=== PATIENT | male | born 1945 | race Caucasian/White ===

== ENCOUNTER → 2017-08-27 10:21 | Outpatient (CLI) | payer MEDICARE, SELFPAY ==
--- NOTE | 2017-08-27 10:47 | AS_ITS ---
Renal Arterial Duplex Indications: HTN. IMPRESSIONS 1. Less than 60% stenosis involving the left renal artery 2. Unable to visualize the right renal artery. Difficult exam. Complete renal arterial duplex. Duplex scan and Doppler flow study including spectral analysis, color and booker scale imaging. Height: Height: 180.3cm. Height: 71in. Weight: Weight: 113.4kg. Weight: 249.5lb. Body mass index: BMI: 34.9kg/m^2. Body surface area: BSA: 2.42m^2. Patient status: Outpatient. Findings: Cyst in the left kidney. Tables: Arterial flow: + +-------+--------+---------+ Location V sys V ed Resistive + +-------+--------+---------+ Left renal - proximal 63cm/s 0cm/s 0.70 + +-------+--------+---------+ Left renal - mid 141cm/s 55.6cm/s 0.60 + +-------+--------+---------+ Left renal - distal 146cm/s 41.1cm/s 1.00 + +-------+--------+---------+ Renal anatomy: + +-----+------+ Left Right + +-----+------+ Long axis 9.1cm 10.9cm + +-----+------+ Short axis 5.1cm 6.4cm + +-----+------+ Cortical thickness 1.4cm 1.7cm + +-----+------+ Velocity ratios: + +-----+ V sys + +-----+ Left renal/aortic 2.5 + +-----+ (Report amended ) Electronically signed by: Mustapha Lugo [id number]
== END ==
PROVIDERS: Family Provider Family Medicine; PCP Family Medicine; Visit Provider Internal Medicine
DX: I70.1 Atherosclerosis of renal artery (principal)
CPT/HCPCS: 93976

== ENCOUNTER → 2017-12-15 12:33 | Outpatient (CLI) | payer MEDICARE, SELFPAY ==
--- NOTE | 2017-12-15 12:40 | CT_ITS ---
EXAM: CT LUNG LOW DOSE WO CONTRAST CPT [id number] COMPARISON: 12/09/2016 screening low-dose CT chest HISTORY: 30 years 1 pack per day June 16 pack-year. no clinical symptoms or signs of lung TECHNIQUE: The exam was performed on a GE Light Speed [address] scanner using 3.0 mGy CTDI. A low dose helical CT CHEST was performed on a multi-detector scanner. All CT scans at this facility use one or more dose reduction techniques, viz.: automated exposure control, ma/kV adjustment per patient size (including targeted exams where dose is matched to indication, i.e. head) or iterative reconstruction technique. The LDCT was performed in a facility that meets the criteria for the screening program. Data regarding this exam was submitted to ACR which is an approved registry. The order for this exam indicates that it came as a result of a lung cancer screening counseling shard decision-making visit that included all the elements required of such a visit including cancer interpreting this exam meets the CMS criteria for the LDCT lung cancer screening program. The exam is reported using the Lung-RADS classification scale and reported to the ACR registry. NOTE: This study was performed for the specific purposes of lung cancer screening and is not an alternative to diagnostic chest CT. RADIATION DOSE: CTDI vol(CT dose Index-volume) = 2.9mGy DLP (Dose Length Product) = 110.46 mGy-cm ======== FINDINGS: No suspicious nor significant appearing lung nodules or masses. Indeterminate or Suspicious Lung Nodules(Category3-4B): None Indeterminate/Non-actionable Nodules(Category2): None the the wispy area noted last year no longer evident here at the left lung base. Benign nodules(Category1)None no suspicious is a benign nodule LUNG PARENCHYMA Emphysema: Mild centrilobular emphysematous changes. 3.5 cm Bleb formation left lung base along left heart border lingula that above diaphragm. No significant change.. Airways disease: Borderline/minor airway thickening. Mild hyperexpansion. . OTHER ANATOMIC REGIONS Lymph Nodes: No significant, pathologic enlarged lymph nodes evident. Scattered small nodes are present in the mediastinum and agus. Stable appearance to a fatty node right paratracheal region measuring 1 cm x 2.3 cm.. Stable small nodes subcarinal and precarinal region. Stable small nodes AP window. No hilar adenopathy. Calcification aortic root and calcification left main, LAD and circumflex artery as well as right coronary. . Diffuse calcifications throughout the proximal SMA instantly noted Pleura: Unremarkable . OTHER FINDINGS: No other pertinent findings evident =========IMPRESSION: 1. . No pulmonary nodule or mass identified. No areas of concern. .Lung RADS Category: 0. Follow-up screening chest CT one year recommended 2.... Mild emphysematous changes, with bleb formation left lung base. Borderline/minimal airway thickening 3. Atherosclerotic Vascular disease/Coronary artery disease/calcification again noted. RECOMMENDATIONS: 12 monthd LDCT follow-up
== END ==
PROVIDERS: PCP Family Medicine; Visit Provider Family Medicine
DX: Z12.2 Encounter for screening for malignant neoplasm of respiratory organs (principal); Z87.891 Personal history of nicotine dependence

== ENCOUNTER → 2018-06-24 08:59 | Outpatient (CLI) | payer MEDICARE, SELFPAY ==
[2018-06-24 10:38] LABS: Blood Urea Nitrogen 14 mg/dL (7-18); Estimated Glomerular Filt Rate 74 ml/min (>60); GFR (African American) 89 ML/MIN (>60)
== END ==
PROVIDERS: Visit Provider Family Medicine
DX: R10.9 Unspecified abdominal pain (principal)
CPT/HCPCS: 36415; 82565; 84520

== ENCOUNTER → 2018-06-26 09:38 | Outpatient (CLI) | payer MEDICARE, SELFPAY ==
--- NOTE | 2018-06-26 09:41 | CT_ITS ---
CT abdomen pelvis wo/w con CLINICAL INDICATION: Right flank pain ITS.REASON: FLANK PAIN ORDERING PHYSICIAN: Mahesh Curry MD PATIENT AGE: 72 years COMPARISON: None TECHNIQUE: Axial images obtained without and with contrast sagittal and coronal reformats. All CT scans at the facility use one or more dose reduction, viz: automated exposure control, ma/kV adjustment per patient size (including targeted exams where dose is matched to indication, i.e. head), or iterative reconstruction technique. PROCEDURE: Oral Contrast: Redicat IV Contrast: 75 mL Omnipaque 350. FINDINGS: Lower thorax: No acute finding in the lung bases. Coronary artery calcifications are present. Aortic valve calcifications are also noted. There are few small isodense lesions of the liver measuring up to 9 mm in the right hepatic lobe inferiorly. These may be due to hepatic cyst. Stability may be confirmed with follow-up. There is mild splenomegaly at 14 cm. The pancreas has an unremarkable appearance. There is mildly enlarged left adrenal gland not significant change. No renal or ureteral calculi. Vascular calcification is present in the kidneys. There are multiple small hypodensities of the kidneys consistent with bilateral renal cysts measuring up to 1 cm. No hydronephrosis. No suspicious renal mass. No ureteral calculi. There is mild ectasia of the infrarenal abdominal aorta. Unremarkable appendix. No intestinal obstruction or free air. There is mild amount of retained colonic feces. Prostate calcifications are noted. No pelvic mass abnormal fluid collection or focal inflammatory change. No evidence of diverticulitis. No acute bony anomalies. There are mild changes in the lumbar spine and SI joints. IMPRESSION: 1. No acute abdominal or pelvic findings. 2. No renal or ureteral calculi. 3. Small bilateral renal cysts and probable hepatic cyst 4. Other nonacute findings as described above
== END ==
PROVIDERS: PCP Family Medicine; Visit Provider Family Medicine
DX: R10.31 Right lower quadrant pain (principal)
CPT/HCPCS: 74178

== ENCOUNTER → 2018-12-18 12:46 | Outpatient (CLI) | payer MEDICARE, SELFPAY ==
--- NOTE | 2018-12-18 12:50 | CT_ITS ---
PROCEDURE: CT LUNG SCREENING CLINICAL INDICATION: H/O NICOTINE DEPENDENCE Thirty pack-year smoking history, asymptomatic for lung cancer COMPARISON: LUNGSCREEN CT lung screening from 12/15/2017 TECHNIQUE: The exam was performed on a GE [employer] Speed [address] scanner using 2.90 mGy CTDI. A low dose helical CT CHEST was performed on a multi-detector scanner. All CT scans at the facility use one or more dose reduction, viz: automated exposure control, ma/kV adjustment per patient size (including targeted exams where dose is matched to indication, i.e. head), or iterative reconstruction technique. The LDCT was performed in a facility that meets the criteria for the screening program. Data regarding this exam was submitted to ACR which is an approved registry. The order for this exam indicates that it came as a result of a lung cancer screening counseling shard decision-making visit that included all the elements required of such a visit including smoking cessation. The radiologist interpreting this exam meets the CMS criteria for the LDCT lung cancer screening program. The exam is reported using the Lung-RADS classification scale and reported to the ACR registry. NOTE: This study was performed for the specific purposes of lung cancer screening and is not an alternative to diagnostic chest CT. RADIATION DOSE: CTDI vol(CT dose Index-volume) = 2.90mG DLP (Dose Length Product) = 110.46 mGcm FINDINGS: COPD. Scattered small mediastinal nodes. Coronary artery calcifications. No suspicious nodules OTHER FINDINGS: Degenerative changes thoracic spine. There is a bleb in the left lung base IMPRESSION: Lung rads category 1-no significant change Recommend annual LD CT screening exam Dictated by: Mustapha Lugo MD 12/18/2018 18:35 Electronically signed by Mustapha Lugo MD in [place] 12/27/2018 07:30
== END ==
PROVIDERS: PCP Family Medicine; Visit Provider Family Medicine
DX: Z87.891 Personal history of nicotine dependence (principal); Z12.2 Encounter for screening for malignant neoplasm of respiratory organs

== ENCOUNTER → 2020-06-09 12:47 | Outpatient (CLI) | payer MEDICARE, SELFPAY ==
--- NOTE | 2020-06-09 12:51 | CT_ITS ---
PROCEDURE: CT LUNG SCREENING CLINICAL INDICATION: H/O NICOTINE DEPENDENCE Former smoker Quit smoking 7-8 years ago 30 pack year smoking history COMPARISON: CT CT LUNG SCREENING from 12/18/2018 TECHNIQUE: The exam was performed on a GE [employer] Speed [address] scanner using 2.90 mGy CTDI. A low dose helical CT CHEST was performed on a multi-detector scanner. All CT scans at the facility use one or more dose reduction, viz: automated exposure control, ma/kV adjustment per patient size (including targeted exams where dose is matched to indication, i.e. head), or iterative reconstruction technique. The LDCT was performed in a facility that meets the criteria for the screening program. Data regarding this exam was submitted to ACR which is an approved registry. The order for this exam indicates that it came as a result of a lung cancer screening counseling shard decision-making visit that included all the elements required of such a visit including smoking cessation. The radiologist interpreting this exam meets the CMS criteria for the LDCT lung cancer screening program. The exam is reported using the Lung-RADS classification scale and reported to the ACR registry. NOTE: This study was performed for the specific purposes of lung cancer screening and is not an alternative to diagnostic chest CT. RADIATION DOSE: CTDI vol(CT dose Index-volume) = 2.90mG DLP (Dose Length Product) = 104.99 mGcm FINDINGS: COPD changes. There is a faint ground-glass in the left lower lobe posteriorly at 6 mm not significantly changed. No suspicious nodules evident. OTHER FINDINGS: Coronary artery calcification. Generalized vascular calcification. There are few small mediastinal lymph nodes not significantly changed. IMPRESSION: Lung-RADS Category 2 Benign Appearance or Behavior Follow-up: Continue annual screening with LDCT in 12 months Dictated by: Mustapha Lugo MD 06/15/2020 13:52 Mustapha Lugo MD in [place] 06/15/2020 13:52
== END ==
PROVIDERS: PCP Family Medicine; Visit Provider Family Medicine
DX: Z87.891 Personal history of nicotine dependence (principal); Z12.2 Encounter for screening for malignant neoplasm of respiratory organs
CPT/HCPCS: 71271

== ENCOUNTER 2020-08-28 16:12 | Emergency (ER) | payer MEDICARE, SELFPAY ==
[2020-08-28 16:15] VITALS: BP 160/83; PULSE 78; RESP 20; TEMP 36.8; O2SAT 100; BMI 35.4
[2020-08-28 16:36] LABS: Apearance,Urine Clear (Clear); Bilirubin,Urine Negative (Negative); Blood, Urine Negative (Negative); Color,Urine Yellow (Yellow); Glucose,Urine (UA) Negative (Negative); Ketones,Urine Negative (Negative); PH,Urine 5.5 (5.0-8.5); Protein,Urine 1+ (Negative); UTC Leukocyte Esterase,Urine 1+ (Negative); UTC Nitrate,Urine Negative (Negative); Urobilinogen,Urine 0.2 EU/dl (0.2)
--- NOTE | 2020-08-28 16:54 | HMH.EDUTC ---
[facility] [place] Clinical Impression: UTI (urinary tract infection) Qualifiers: Urinary tract infection type: site unspecified Hematuria presence: without hematuria Qualified Code(s): N39.0 - Urinary tract infection, site not specified Low back pain Qualifiers: Chronicity: acute Back pain laterality: right Sciatica presence: without sciatica Qualified Code(s): M54.5 - Low back pain Disposition: Home, Self-Care Condition on Discharge: Good Instructions: Urinary Tract Infection Additional Instructions: Drink plenty of fluids. Take tylenol for pain or fever. Take the medications as directed. Follow up with your regular doctor. GO TO THE ER FOR ANY WORSENING SYMPTOMS Prescriptions: Cefdinir [Omnicef 300mg Capsule] 300 mg PO BID #20 cap Transmission Status: Received by [id number] Referrals: Mahesh Curry MD [Primary Care Provider] - Time of Disposition: 16:58 Medical Decision Making - Medical Records Medical records reviewed: No: I reviewed the patient's medical records. - Willy Inquiry Pt receiving controlled substance: No Vital Signs: 08/28/20 16:15 08/28/20 16:59 Temperature 98.3 F 98.3 F Temperature Source Oral Pulse Rate 78 Pulse Rate [Right Brachial] 78 Respiratory Rate 20 20 Blood Pressure 160/83 H Blood Pressure [Right Arm] 160/83 H Blood Pressure Mean [Right Arm] 108 Blood Pressure Source [Right Arm] Automatic Cuff Blood Pressure Position [Right Arm] Sitting 02 Sat by Pulse Oximetry 100 Oxygen Delivery Method Room Air - Lab Data Lab results reviewed: Yes: I reviewed the patient's lab results. Lab Results 08/28/20 16:35: Urine Color Yellow, Urine Appearance Clear, Urine pH 5.5, Ur Specific [place] 1.010, Urine Protein 1+, Urine Glucose (UA) Negative, Urine Ketones Negative, Urine Blood Negative, Urine Nitrate Negative, Urine Bilirubin Negative, Urine Urobilinogen 0.2, Ur Leukocyte Esterase 1+ A Orders (Tests/Meds): ORDERS Category Date Time Status Urine Culture Stat Micro 08/28/20 16:30 Results [facility] [place] - General Stated complaint: back pain Time Seen by Provider: 08/28/20 16:55 Mode of Arrival: Ambulatory Source of Information: Patient Limitations: No Limitations Description of Symptoms (Recalled from Triage Doc. by RN): PATIENT C/O RIGHT FLANK PAIN X 1 WEEK HEENT Symptoms (Recalled from RN notes): No Resp Symptoms (Recalled from RN notes): No Skin Symptoms (Recalled from RN notes): No MS Symptoms (Recalled from RN notes): No Functional Status (Recalled from RN notes): WNL - History of Present Illness Provider Complaint: He c/o right sided low back pain, dark cloudy foul smelling urine for the past 1 week. He has had a uti before and it felt just like this. He has had a kidney stone before also, but he states that he had way worse pain with that than he is having today. - Related Data Home Medications Medication Instructions Recorded Confirmed aspirin 81 mg tablet,delayed 81 mg PO QDAY 02/25/17 12/02/17 release finasteride 5 mg tablet 5 mg PO QDAY 02/25/17 12/02/17 furosemide 40 mg tablet 40 mg PO ONCE 02/25/17 12/02/17 levothyroxine 125 mcg capsule PO 02/25/17 12/02/17 losartan 100 mg tablet 100 mg PO QDAY 02/25/17 12/02/17 rivaroxaban 20 mg tablet 20 mg PO QDAY 02/25/17 12/02/17 carvedilol 25 mg tablet 50 mg PO BID tab 06/10/17 12/02/17 potassium chloride 20 mEq 20 meq PO QDAY tab 06/10/17 12/02/17 tablet,extended release(part/cryst) amlodipine 10 mg tablet 5 mg PO QDAY tab 12/02/17 12/02/17 simvastatin 5 mg tablet 10 mg PO QPM tab 12/02/17 12/02/17 Previous Rx's Medication Instructions Recorded Cefdinir [Omnicef 300mg Capsule] 300 mg PO BID #20 cap 08/28/20 Allergies Allergy/AdvReac Type Severity Reaction Status Date / Time No Known Drug Allergies Allergy Unknown Unverified 02/25/17 09:59 - Worker's Comp Is this a Worker's Comp case?: No [facility] History - Hepatitis A Scree
[2020-08-28 16:59] VITALS: BP 160/83; PULSE 78; RESP 20; TEMP 36.8; O2SAT 100
== END 2020-08-28 17:04 | disposition home or self-care (01) ==
PROVIDERS: Emergency Provider Nurse Practitioner Family; PCP Family Medicine
DX: N30.00 Acute cystitis without hematuria (principal); E78.5 Hyperlipidemia, unspecified; I10 Essential (primary) hypertension; Z87.442 Personal history of urinary calculi; Z79.899 Other long term (current) drug therapy
CPT/HCPCS: G0463; 81003; 87086; 99202

== ENCOUNTER → 2020-09-19 14:13 | Outpatient (CLI) | payer MEDICARE, SELFPAY ==
--- NOTE | 2020-09-19 14:14 | CT_ITS ---
PROCEDURE: CT ABDOMEN PELVIS WO CON CLINICAL INDICATION: flank pain, renal cyst COMPARISON: CT [id number] CT abdomen pelvis wo/w con from 06/26/[address] LUNG SCREENING from 06/09/2020 TECHNIQUE: Axial images obtained with sagittal and coronal reformats. All CT scans at the facility use one or more dose reduction, viz: automated exposure control, ma/kV adjustment per patient size (including targeted exams where dose is matched to indication, i.e. head), or iterative reconstruction technique. FINDINGS: LOWER THORAX: Coronary artery calcifications. ABDOMEN & PELVIS: Small hypodensity is present in the right hepatic lobe anteriorly along the liver surface segment 7 and may be due to small cyst not significantly changed measuring 7 mm. No radiopaque gallstones. The spleen and pancreas have an unremarkable unenhanced appearance. Left adrenal gland is slightly enlarged not significantly change maintaining an adrenal form shape. No renal or ureteral calculi are evident. There is an hyperdense 4 mm nodule of the right kidney posteriorly and a 10 mm hyperdense nodule of the left kidney posteriorly. This is slightly increased in size previously at 5 mm. Exophytic 8 mm I so density involves the right kidney laterally. No intestinal obstruction or free air. There is some hyperdensity in the stomach and may be related to recent medication ingestion. No evidence of appendicitis. There are few colonic diverticula but no evidence of diverticulitis. There is diffuse atherosclerotic calcific plaque of the aorta, SMA, celiac, iliacs, and renal arteries. There is minimal ectasia of the infrarenal portion of the abdominal aorta at 2.5 cm. There is coarse calcification within the prostate. There are degenerative changes in the hips with subchondral cystic changes of the right acetabular roof. There is a extra ossification center in the inferior aspect of the left SI joint unchanged. IMPRESSION: 1. Bilateral small hyperdense renal lesions which may be due to a hyperdense cyst. MRI could confirm cystic nature of clinically desired. Ultrasound may be difficult to evaluate these lesions secondary to patient's body habitus and there location 2. No renal or ureteral calculi or hydronephrosis. 3. Other nonacute findings as described above. Dictated by: Mustapha Lugo MD 09/19/2020 16:29 Mustapha Lugo MD in [place] 09/19/2020 16:29
== END ==
PROVIDERS: PCP Family Medicine; Visit Provider Urology
DX: R10.9 Unspecified abdominal pain (principal)
CPT/HCPCS: 74176

== ENCOUNTER → 2021-12-04 08:24 | Outpatient (CLI) | payer MEDICARE, SELFPAY ==
--- NOTE | 2021-12-04 08:28 | CT_ITS ---
FINAL REPORT TECHNIQUE: Axial images were obtained from the lung apex to the mid abdomen by computed tomography. This study was performed with techniques to keep radiation doses as low as reasonably achievable (ALARA). Individualized dose reduction techniques using automated exposure control or adjustment of mA and/or kV according to the patient's size were employed. CLINICAL HISTORY: FORMER SMOKER QUIT 9 YEARS AGO, 2PPD X41 YEARS WHEN SMOKING COMPARISON: 06/09/2020 and 12/18/2018 FINDINGS: CHEST CT LOW DOSE CTDI vol (mGy): 2.90 DLP (mGy-cm): 96.38 There is no axillary adenopathy. T there are multiple mildly enlarged mediastinal nodes which are stable. There is severe left coronary artery calcification. The heart is normal in size. There is no pericardial or pleural effusion. There is a 6 mm ground-glass nodule in the left lower lobe, stable. Limited images of the upper abdomen are unremarkable. IMPRESSION: Stable left lower lobe nodule. Lung RADS category 2. Recommend 12 month follow-up low-dose chest CT. Reviewed, Interpreted and Dictated by Roney Phillips III, MD Transcribed by Dipti Long Authenticated and [facility]
== END ==
PROVIDERS: PCP Family Medicine; Visit Provider Family Medicine
DX: Z87.891 Personal history of nicotine dependence (principal); Z12.2 Encounter for screening for malignant neoplasm of respiratory organs
CPT/HCPCS: 71271

== ENCOUNTER 2022-09-27 06:48 | Day surgery (SDC) | payer MEDICARE, SELFPAY ==
--- NOTE | 2022-09-24 17:02 | SUR.PREOP ---
0602 - Attempted pre op phone call at this time. No answer, left call back #
[2022-09-24 17:31] VITALS: BMI 35.4
--- NOTE | 2022-09-25 13:10 | SUR.PREOP ---
per SHAHEED in Dr. Briceno office pt is ok to hold xarelto today in order to have scope on friday. SHAHEED stated she is going to contact patient regarding this.
[2022-09-27 07:08] VITALS: BP 129/77; PULSE 76; RESP 18; TEMP 36.4; O2SAT 94
--- NOTE | 2022-09-27 07:34 | EXP.ANES.CKL ---
[facility] Disclaimer: The information contained in this section may have been updated after the patient was seen, as this information can be updated by other users. Medical History Daytime sleepiness Dysfunction of right eustachian tube Fatigue Hearing loss, right History of atrial fibrillation History of hyperlipidemia History of hypertension TMJ arthritis Surgical History History of colonoscopy Family History (Updated 09/27/22 @ 06:59 by Renae Aldridge RN) Brother Family history of cancer Other Family history of diabetes mellitus type II Social History (Updated 09/27/22 @ 07:00 by Renae Aldridge RN) Smoking Status: Never smoker alcohol intake: never counseling provided: provider counseling substance use type: denies use current occupational status: retired Travel in the last 8 weeks: None household members: spouse housing: house lives independently: No marital status: education level: high school service: No long-term: No caffeine: Yes special fanny needs: No agree to transfusion: No do you feel safe at home: Yes victim of physical abuse: No victim of emotional abuse: No victim of sexual abuse: No would you like helpful sources: No [facility] Anesthesia Checklist Patient Identification Patient Identification: Arm Band and Family Structural Data Admitted From: Home Planned Operative Procedure/s: colonoscopy Consent for Planned Operative Procedure(s) Verified: Yes Verified Documents: History and Physical NPO Status Verified Time NPO: 00:00 Additional verifications Patient : No Anesthesia Reactions: No Hx Blood Transfusions: No Blood Transfusion Reaction: No Cephalosporin Allergy: No Previous Colonoscopy: Yes Airway Assessment Mallampati Score:: Class II C-Spine Mobility Assessed: Yes TMJ Mobility Assessed: Yes Dentition: Good Dentition Neurological Assessment Level of Consciousness: Awake, Alert and Appropriate Hx Seizures: No Numbness or tingling in extremities: No Anesthesia Plan Anesthesia Risk discussed: Yes ASA Class: II Anesthesia Type: MAC Preoperative Comments Pre-Operative Comments: History of atrial fib. Hypertension.
[2022-09-27 07:59] VITALS: O2SAT 94
--- NOTE | 2022-09-27 08:54 | P.PCN_ITS ---
Procedure: Date: 09/27/22 Patient Date of :: 1945 Procedure Performed:: Total colonoscopy to terminal ileum with polypectomy using hot snare, cold snare, hot biopsy, cold biopsy Indications:: Patient is a 76-year-old male. He is scheduled for screening colonoscopy . I had performed colonoscopy on him in 2006 at which time he had benign hyperplastic polyps. Colonoscopy 2018 revealed 3 tubular adenomas. Patient is on Xarelto for history of atrial fibrillation. He last took this on 09/25/2022 Performing Provider:: Roney Beltrán MD Referring Provider:: Arnol Curry MD Sedation:: MAC sedation Procedure:: Patient history was obtained and appropriate physical examination was performed. Patient's medications and allergies were reviewed. Informed consent was obtained after explaining the benefits, alternatives, and risks of the procedure including, but not limited to, bleeding, perforation, missed lesions, and adverse reaction to anesthesia medications. Patient was transported to endoscopy procedure room. Patient was connected to monitoring devices. Throughout the procedure the patient's blood pressure, pulse, and oxygen saturations were monitored continuously. Patient identificati on and planned procedure were verified by the staff. Patient was positioned in lateral decubitus position. Digital anorectal exam was performed. Variable stiffness Olympus colonoscope was inserted and advanced under direct visualization to the cecum. Adequacy of the colonic preparation was noted. The colonoscope was advanced a short distance into the terminal ileum. The colonoscope was then slowly withdrawn while carefully examining the color, texture, anatomy, and integrity of the mucosoa circumferentially. Within the rectum retroflexion was performed. Colonoscope was then withdrawn. . There was some particulate liquid stool. Within the cecum there is a moderately large somewhat friable polyp which was removed in a piecemeal fashion using hot snare followed by cold snare and hot biopsy as there was some oozing. There appeared to be good hemostasis. This was adjacent to the ileocecal valve. Just distal to this there was a small to moderate adenomatous polyp removed with cold snare. There was some oozing and Hemoclip was deployed for assurance of hemostasis. In the sigmoid colon there was a small polyp removed with biopsy forceps. In the rectosigmoid region there was a tiny diminutive polyp removed with cold snare and retrieved with biopsy forceps. Retroflexion within the rectum revealed minimal hemorrhoids. Findings:: Polyps as noted above Rare sigmoid diverticulosis Recommendations:: Repeat colonoscopy pending pathology. Likely within 3 years Complications:: None immediate Estimated blood obtained (mL): 5 Colonoscopy Component Colonoscopy Component Was a colonoscopy performed during today's procedure?: Yes Recommended follow up colonoscopy of at least 10 years?: No If no, follow up colonoscopy recommended in ___ years?: Unclear Reason for not recommending >/= 10 yr follow-up interval?: Polyp pathology pending
[2022-09-27 09:00] VITALS: BP 103/62; PULSE 55; RESP 14; TEMP 36.4; O2SAT 94
[2022-09-27 09:10] VITALS: BP 104/63; PULSE 62; RESP 14; O2SAT 93
[2022-09-27 09:20] VITALS: BP 104/67; PULSE 64; RESP 16; O2SAT 94
== END 2022-09-27 09:25 | disposition home or self-care (01) ==
PROVIDERS: PCP Family Medicine; Visit Provider Surgery
PROC: 0DJD8ZZ Inspection of Lower Intestinal Tract, Via Natural or Artificial Opening Endoscopic (ICD-10-PCS; principal; 2022-09-27 07:30)
DX: Z12.11 Encounter for screening for malignant neoplasm of colon (principal); Z86.010 Personal history of colon polyps; K57.30 Diverticulosis of large intestine without perforation or abscess without bleeding; D12.0 Benign neoplasm of cecum; D12.5 Benign neoplasm of sigmoid colon
CPT/HCPCS: 45380; 45385; 88305; J2704

== ENCOUNTER → 2022-10-08 09:31 | Outpatient (POV) | payer MEDICARE, SELFPAY | PROVIDERS: Visit Provider Specialist/Technologist | DX: Z00.00 Encounter for general adult medical examination without abnormal findings (principal) ==

== ENCOUNTER 2023-06-27 13:08 | Outpatient (CLI) | payer MEDICARE, SELFPAY ==
--- NOTE | 2023-06-27 13:11 | CT_ITS ---
FINAL REPORT TECHNIQUE: Thin section axial images were obtained from the lung apices to the upper abdomen by computed tomography. Reformatted images were obtained and reviewed. This study was performed with techniques to keep radiation doses al low as reasonably achievable (ALARA). Individualized dose reduction techniques using automated exposure control or adjustment of mA and/or kV according to the patient's size were employed. CLINICAL HISTORY: H/O TOBACCO USE former smoker quit 11 years ago, smoked 2 ppd, 30 years total sister hx of lung cancer COMPARISON: 12/04/2021 FINDINGS: CHEST CT LOW DOSE CTDI vol (mGy): 2.90 DLP (mGy-cm): 96.38 There is no axillary adenopathy. Small mediastinal nodes are noted. The heart is normal in size. There are severe left coronary artery calcifications which are stable. There is no pericardial or pleural effusion. There is mild emphysema and mild pulmonary scarring. Lung window images demonstrate a groundglass nodule in the left lower lobe on image 33 measuring 9 mm, was 6 mm. Limited images of the upper abdomen are unremarkable. IMPRESSION: Interval enlargement left lower lobe groundglass nodule. Lung-RADS category 4A. Recommend 3 month follow up low dose chest CT. Reviewed, Interpreted and Dictated by Roney Phillips III, MD Transcribed by Nanci Roberto Authenticated and [facility][1]
== END 2023-06-27 23:59 | disposition home or self-care (01) ==
LOC: RAD 13:08
PROVIDERS: PCP Family Medicine; Visit Provider Family Medicine
DX: Z87.891 Personal history of nicotine dependence (principal); Z12.2 Encounter for screening for malignant neoplasm of respiratory organs
CPT/HCPCS: 71271

== ENCOUNTER 2023-10-14 08:58 | Outpatient (CLI) | payer MEDICARE, SELFPAY ==
[2023-10-14 09:21] LABS: Blood Urea Nitrogen 16 mg/dl (9-20); Estimated Glomerular Filt Rate 73 ml/min (>60); GFR (African American) 88 ML/MIN (>60)
--- NOTE | 2023-10-14 09:32 | CT_ITS ---
FINAL REPORT TECHNIQUE: The patient was injected with IV contrast. Axial images were obtained of the chest by computed tomography. Precontrast images were also obtained. This study was performed with techniques to keep radiation doses as low as reasonably achievable (ALARA). Individualized dose reduction techniques using automated exposure control or adjustment of mA and/or kV according to the patient's size were employed. CLINICAL HISTORY: ABNORMAL RAD FINDINGS LUNG FIELD/NODULE COMPARISON: 06/27/2023 CT low-dose FINDINGS: CT OF THE CHEST WITH AND WITHOUT CONTRAST: There is mild right paratracheal adenopathy. Nodes measure up to 18 mm and demonstrate preserved fatty agus. Heart size is normal. There are moderate coronary artery calcifications. There is no pericardial or pleural effusion identified. Again noted is a groundglass nodule in the left lower lobe measuring 9 mm in greatest dimension, stable from the prior study and well seen on image 37 of series 4. No other new nodule visualized. IMPRESSION: Stable left lower lobe nodule. Follow-up in 6 months recommended per Fleischner criteria. Reviewed, Interpreted and Dictated by Hernando Holt MD Transcribed by Nanci Roberto Authenticated and . [facility]
[2023-10-14] MEDS: IOPAMIDOL-370 (76%);100ML BOTTLE 75 ML IV (10:03)
[2023-10-14] MEDS: SODIUM CHLORIDE 0.9% 10ML SYR (RAD ONLY) 10 ML IV (10:03)
== END 2023-10-14 23:59 | disposition home or self-care (01) ==
LOC: RAD 09:00
PROVIDERS: PCP Family Medicine; Visit Provider Family Medicine
DX: R91.8 Other nonspecific abnormal finding of lung field (principal); R91.1 Solitary pulmonary nodule
CPT/HCPCS: 36415; 71270; 82565; 84520; Q9967